=== PATIENT | female | born 1985 | race Asian ===

== ENCOUNTER 2020-09-10 11:08 | Emergency (ER) | payer MEDICAID ==
[~2020-09-10] VITALS: Ht 162.6 cm; Wt 65.5 kg
[~2020-09-10 11:08] MED LIST: INSLAN SQ; MAGN400T7 PO; METF-960 PO; PIOG15TA6 PO
[2020-09-10 11:36] LABS: GLUCOSE,POINT OF CARE 133 MG/DL (70-110)
[2020-09-10] MEDS ORDERED: SODIUM CHLORIDE 0.9% 1,000 ML IV ONE ×2 (11:45→13:15)
[2020-09-10] MEDS ORDERED: ONDANSETRON HCL 4 MG/2 ML VIAL IVP ONE ×2 (11:45→13:00)
[2020-09-10 12:14] LABS: BASOPHILS % (AUTO) 0.4 % (0.0-2.0); EOSINOPHILS % (AUTO) 0.8 % (1.0-6.0); HEMATOCRIT 25.9 % (36-46); HEMOGLOBIN 8.5 g/dL (12.0-16.0); LYMPHOCYTES # (AUTO) 2.2 K/uL (1.0-4.8); LYMPHOCYTES % (AUTO) 14.9 % (22.0-44.0); MEAN CORPUSCULAR HEMOGLOBIN 27.1 pg (26.0-34.0); MEAN CORPUSCULAR HGB CONC 32.6 G/dL (31.0-37.0); MEAN CORPUSCULAR VOLUME 83 fL (80-100); MONOCYTES # (AUTO) 0.7 K/uL (0.1-1.0); MONOCYTES % (AUTO) 4.6 % (2.0-9.0); NEUTROPHILS # (AUTO) 11.6 K/uL (1.8-7.7); NEUTROPHILS % (AUTO) 79.3 % (40.0-70.0); PLATELET COUNT (AUTO) 224 K/uL (150-450); RED BLOOD CELL COUNT(AUTO) 3.12 MIL/uL (4.00-5.20); RED CELL DISTRIBUTION WIDTH 12.1 % (11.5-14.5)
[2020-09-10 12:19] LABS: ANION GAP 10 mmol/L (8-16); CALCIUM, TOTAL 8.9 mg/dL (8.8-10.5); CARBON DIOXIDE 23 mmol/L (22-29); CHLORIDE 102 mmol/L (98-107); CREATININE 0.96 mg/dL (0.60-1.30); GLOMERULAR FILTR. RATE CALC > 60 mL/min (>60); GLUCOSE,RANDOM 141 mg/dL (70-110); POTASSIUM 4.1 mmol/L (3.5-5.1); SODIUM SERUM 135 mmol/L (136-145); UREA NITROGEN, BLOOD 22 mg/dL (7-18)
[2020-09-10 12:47] LABS: ALANINE AMINOTRANSFERASE 13 U/L (12-78); ALBUMIN 2.9 g/dL (3.4-5.0); ALKALINE PHOSPHATASE 51 U/L (46-116); ASPARTATE AMINOTRANSFERASE 12 U/L (15-37); BILIRUBIN,TOTAL 0.3 mg/dL (0.1-1.0); TOTAL PROTEIN, SERUM 6.8 g/dL (6.4-8.2)
[2020-09-10 14:37] VITALS: BP 117/68
== END 2020-09-10 14:37 | disposition home or self-care (01) ==
LOC: EMS 11:08
DX: O99.011 Anemia complicating pregnancy, first trimester (principal); O21.0 Mild hyperemesis gravidarum; O24.12 Pre-existing type 2 diabetes mellitus, in childbirth; O16.1 Unspecified maternal hypertension, first trimester; Z3A.01 Less than 8 weeks gestation of pregnancy
CPT/HCPCS: 36415; 76801; 76817; 80053; 82962; 84702; 85025; 86901; 96361; 96374; 96376; 99284; J2405; J7030

== ENCOUNTER 2020-09-25 12:22 | Observation (INO) | payer MEDICAID ==
[~2020-09-25] VITALS: Ht 162.6 cm; Wt 64.5 kg
[2020-09-25 12:39] LABS: GLUCOSE,POINT OF CARE 126 MG/DL (70-110)
[2020-09-25] MEDS ORDERED: RINGERS SOLUTION,LACTATED 1,000 ML IV ONE (13:43)
[2020-09-25 13:54] LABS: GLUCOMETER DEV NAME(LOC) 4S.; GLUCOSE,POINT OF CARE 225 MG/DL (70-110)
[2020-09-25 14:02] VITALS: BP 100/59
[2020-09-25] MEDS ORDERED: ONDANSETRON HCL 4 MG/2 ML VIAL IVP ONE (15:30)
[2020-09-25 15:55] LABS: ANION GAP 8 mmol/L (8-16); CALCIUM, TOTAL 8.3 mg/dL (8.8-10.5); CARBON DIOXIDE 26 mmol/L (22-29); CHLORIDE 101 mmol/L (98-107); CREATININE 0.96 mg/dL (0.60-1.30); GLOMERULAR FILTR. RATE CALC > 60 mL/min (>60); GLUCOSE,RANDOM 132 mg/dL (70-110); POTASSIUM 4.3 mmol/L (3.5-5.1); SODIUM SERUM 135 mmol/L (136-145); UREA NITROGEN, BLOOD 13 mg/dL (7-18)
[2020-09-25 16:01] LABS: ALANINE AMINOTRANSFERASE 11 U/L (12-78); ALBUMIN 2.6 g/dL (3.4-5.0); ALKALINE PHOSPHATASE 52 U/L (46-116); ASPARTATE AMINOTRANSFERASE 11 U/L (15-37); BILIRUBIN,TOTAL 0.2 mg/dL (0.1-1.0); TOTAL PROTEIN, SERUM 6.1 g/dL (6.4-8.2)
== END 2020-09-25 16:55 | disposition home or self-care (01) ==
LOC: EDUNIT# 12:22 → EMS 12:25 → 4S 12:40 → EDBD 12:40 → INTOOBSV 12:40
PROVIDERS: ADMIT Obstetrics & Gynecology; ATTEND Obstetrics & Gynecology
DX: O21.2 Late vomiting of pregnancy (principal); O26.892 Other specified pregnancy related conditions, second trimester; R42 Dizziness and giddiness; Z3A.21 21 weeks gestation of pregnancy
CPT/HCPCS: 36415; 59025; 76805; 80053; 81001; 82962; 96374; 99219; J2405; J7120; 96360; 96366

== ENCOUNTER 2021-05-30 11:57 | Inpatient (IN) | payer MEDICAID ==
[~2021-05-30] VITALS: Ht 162.6 cm; Wt 56.8 kg
[~2021-05-30 11:57] MED LIST changes: +METF-1211 PO; -METF-960 PO
[2021-05-30] MEDS ORDERED: SODIUM CHLORIDE 0.9% 1,000 ML IV ONE ×2 (13:15→17:45)
[2021-05-30] MEDS ORDERED: ONDANSETRON HCL 4 MG/2 ML VIAL IVP ONE (13:15)
[2021-05-30 13:27] LABS: BASOPHILS % (AUTO) 0.6 % (0.0-2.0); EOSINOPHILS % (AUTO) 0 % (1.0-6.0); HEMATOCRIT 27.9 % (36-46); HEMOGLOBIN 9.4 g/dL (12.0-16.0); LYMPHOCYTES # (AUTO) 1.2 K/uL (1.0-4.8); LYMPHOCYTES % (AUTO) 9.5 % (22.0-44.0); MEAN CORPUSCULAR HEMOGLOBIN 26.6 pg (26.0-34.0); MEAN CORPUSCULAR HGB CONC 33.6 G/dL (31.0-37.0); MEAN CORPUSCULAR VOLUME 79 fL (80-100); MONOCYTES # (AUTO) 0.4 K/uL (0.1-1.0); MONOCYTES % (AUTO) 3.1 % (2.0-9.0); NEUTROPHILS # (AUTO) 11.1 K/uL (1.8-7.7); PLATELET COUNT (AUTO) 318 K/uL (150-450); RED BLOOD CELL COUNT(AUTO) 3.52 MIL/uL (4.00-5.20); RED CELL DISTRIBUTION WIDTH 12.7 % (11.5-14.5)
[2021-05-30 13:30] LABS: NEUTROPHILS % (AUTO) 86.8 % (40.0-70.0)
[2021-05-30 13:38] LABS: ANION GAP 11 mmol/L (8-16); CALCIUM, TOTAL 9.5 mg/dL (8.8-10.5); CARBON DIOXIDE 28 mmol/L (22-29); CHLORIDE 103 mmol/L (98-107); CREATININE 1.43 mg/dL (0.60-1.30); GLOMERULAR FILTR. RATE CALC 41 mL/min (>60); GLUCOSE,RANDOM 240 mg/dL (70-110); POTASSIUM 3.5 mmol/L (3.5-5.1); SODIUM SERUM 142 mmol/L (136-145); UREA NITROGEN, BLOOD 38 mg/dL (7-18)
[2021-05-30 13:49] LABS: ALANINE AMINOTRANSFERASE 12 U/L (12-78); ALBUMIN 3.1 g/dL (3.4-5.0); ALKALINE PHOSPHATASE 65 U/L (46-116); ASPARTATE AMINOTRANSFERASE 13 U/L (15-37); BILIRUBIN,TOTAL 0.7 mg/dL (0.1-1.0); HCG,QUANTITATIVE < 1 mIU/mL (0-6); LIPASE 84 U/L (73-393); TOTAL PROTEIN, SERUM 7.2 g/dL (6.4-8.2)
[2021-05-30] MEDS ORDERED: DiphenhydrAMINE HCL 50 MG/ML VIAL IVP ONE (16:15)
[2021-05-30] MEDS ORDERED: MORPHINE SULFATE 4 MG/ML SYRINGE IVP ONE (16:15)
[2021-05-30] MEDS ORDERED: PB/HYOSCY/ATR/SCOP/LIDO/MAALOX 55 ML BOTTLE PO ONE (16:15)
[2021-05-30 16:41] LABS: APPEARANCE,URINE CLEAR (CLEAR); BILIRUBIN,URINE NEGATIVE (NEGATIVE); GLUCOSE, URINE (UA) 500 mg/dL (NEGATIVE); KETONES,URINE >=80 mg/dL (NEGATIVE); LEUKOCYTE ESTERASE ,URINE NEGATIVE (NEGATIVE); NITRATE,URINE NEGATIVE (NEGATIVE); OCCULT BLOOD,URINE SMALL (NEGATIVE); PROTEIN,URINE SEE CONFIRM (NEGATIVE); UROBILINOGEN,URINE 0.2 mg/dL (<=1.0)
[2021-05-30 16:47] LABS: AMPHET/METH SCREEN,URINE NEGATIVE (NEGATIVE); BARBITURATE SCREEN, URINE NEGATIVE (NEGATIVE); BENZODIAZEPINES SCREEN,URINE NEGATIVE (NEGATIVE); CANNABINOID SCREEN,URINE NEGATIVE (NEGATIVE); COCAINE SCREEN,URINE NEGATIVE (NEGATIVE); METHADONE SCREEN, URINE NEGATIVE (NEGATIVE); OPIATE SCREEN,URINE NEGATIVE (NEGATIVE); PHENCYCLIDINE SCREEN,URINE NEGATIVE (NEGATIVE)
[2021-05-30 16:52] LABS: SULFOSALICYLIC ACID,URINE 4+ (Negative)
[2021-05-30 16:53] LABS: BACTERIA,URINE Few /HPF (None Seen); SQUAMOUS EPITHELIAL CELL,UR Few /LPF (None Seen); WBC,URINE 0-2 /HPF (0-5)
[2021-05-30] MEDS ORDERED: MetroNIDAZOLE 250 MG TABLET PO ONE (20:45)
[2021-05-30] MEDS: RINGERS SOLUTION,LACTATED 1,000 ML IV SCH (21:00)
[2021-05-30] MEDS ORDERED: DEXTROSE 50%-WATER 25 GM/50 ML SYRINGE IVP PRN (21:00)
[2021-05-30] MEDS ORDERED: RINGERS LACTATED IV ONE (21:00)
[2021-05-30] MEDS ORDERED: MetroNIDAZOLE 500 MG TABLET PO ONE (21:00)
[2021-05-30 21:21] LABS: RETICULOCYTE % (AUTO) 1.5 % (0.5-2.3)
[2021-05-30 21:22] LABS: % IRON SATURATION 27.9 % (22-44)
[2021-05-30] MEDS: INSULIN GLARGINE,HUM.REC.ANLOG 100 UNITS/ML SQ SCH (22:02)
[2021-05-30] MEDS: INSULIN LISPRO 100 UNITS/ML SQ PRN (22:10)
[2021-05-31] MEDS: HEPARIN SODIUM,PORCINE 5,000 UNITS/ML VIAL SQ SCH ×3 (00:01→15:37)
[2021-05-31 00:28] LABS: COVID AG,FIA SOURCE NASAL SWAB
[2021-05-31] MEDS: RINGERS SOLUTION,LACTATED 1,000 ML IV SCH ×4 (03:17→23:16)
[2021-05-31 07:47] LABS: BASOPHILS % (AUTO) 0.6 % (0.0-2.0); EOSINOPHILS % (AUTO) 0.2 % (1.0-6.0); HEMATOCRIT 23.6 % (36-46); HEMOGLOBIN 8.1 g/dL (12.0-16.0); LYMPHOCYTES # (AUTO) 2.4 K/uL (1.0-4.8); LYMPHOCYTES % (AUTO) 20.6 % (22.0-44.0); MEAN CORPUSCULAR HEMOGLOBIN 27.3 pg (26.0-34.0); MEAN CORPUSCULAR HGB CONC 34.4 G/dL (31.0-37.0); MEAN CORPUSCULAR VOLUME 79 fL (80-100); MONOCYTES # (AUTO) 0.9 K/uL (0.1-1.0); MONOCYTES % (AUTO) 7.4 % (2.0-9.0); NEUTROPHILS # (AUTO) 8.3 K/uL (1.8-7.7); NEUTROPHILS % (AUTO) 71.2 % (40.0-70.0); PLATELET COUNT (AUTO) 242 K/uL (150-450); RED BLOOD CELL COUNT(AUTO) 2.98 MIL/uL (4.00-5.20); RED CELL DISTRIBUTION WIDTH 12.8 % (11.5-14.5)
[2021-05-31 07:55] LABS: CALCIUM, TOTAL 8.2 mg/dL (8.8-10.5); CREATININE 1.24 mg/dL (0.60-1.30); MAGNESIUM 1.4 mg/dL (1.80-2.40); POTASSIUM 3.5 mmol/L (3.5-5.1)
[2021-05-31] MEDS: ONDANSETRON HCL 4 MG/2 ML VIAL IVP PRN ×3 (10:42→22:43)
[2021-05-31] MEDS ORDERED: MORPHINE SULFATE 2 MG/ML SYRINGE IVP PRN (12:30)
[2021-05-31 15:40] VITALS: BP 149/100
[2021-05-31 17:46] LABS: GLUCOMETER DEV NAME(LOC) 6N.1; GLUCOSE,POINT OF CARE 108 MG/DL (70-110)
[2021-05-31] MEDS: ACETAMINOPHEN 325 MG TABLET PO PRN ×2 (18:08→22:43)
[2021-05-31] MEDS: INSULIN GLARGINE,HUM.REC.ANLOG 100 UNITS/ML SQ SCH (20:06)
[2021-05-31] MEDS ORDERED: MAGNESIUM HYDROXIDE SUSPENSION 30 ML UDCUP PO ONE (20:15)
[2021-05-31 20:54] VITALS: BP 137/81
[2021-05-31 21:31] LABS: GLUCOMETER DEV NAME(LOC) 6N.1; GLUCOSE,POINT OF CARE 102 MG/DL (70-110)
[2021-06-01] MEDS: HEPARIN SODIUM,PORCINE 5,000 UNITS/ML VIAL SQ SCH ×4 (00:46→23:18)
[2021-06-01 00:47] VITALS: BP 150/91
[2021-06-01] MEDS ORDERED: MAGNESIUM SULFATE 4 GM/WATER 100 ML IV PRN (01:15)
[2021-06-01] MEDS ORDERED: MAGNESIUM OXIDE 400 MG TABLET PO PRN (01:15)
[2021-06-01] MEDS ORDERED: MAGNESIUM SULFATE 2 GM/WATER 50 ML IV PRN (01:15)
[2021-06-01] MEDS: MORPHINE SULFATE 2 MG/ML SYRINGE IVP PRN ×6 (01:22→21:37)
[2021-06-01] MEDS: ACETAMINOPHEN 325 MG TABLET PO PRN ×2 (04:12→10:45)
[2021-06-01 04:30] VITALS: BP 167/90
[2021-06-01] MEDS: ONDANSETRON HCL 4 MG/2 ML VIAL IVP PRN ×3 (04:33→21:37)
[2021-06-01 06:46] LABS: GLUCOMETER DEV NAME(LOC) 6N.1; GLUCOSE,POINT OF CARE 70 MG/DL (70-110)
[2021-06-01 07:30] VITALS: BP 148/79
[2021-06-01] MEDS: RINGERS SOLUTION,LACTATED 1,000 ML IV SCH (10:57)
[2021-06-01 11:11] LABS: GLUCOMETER DEV NAME(LOC) 6N.2; GLUCOSE,POINT OF CARE 160 MG/DL (70-110)
[2021-06-01] MEDS: DEXTROSE 5%-0.45% SODIUM CHL 1,000 ML IV SCH (11:24)
[2021-06-01] MEDS: INSULIN LISPRO 100 UNITS/ML SQ PRN ×2 (11:30→18:13)
[2021-06-01 11:54] LABS: BASOPHILS % (AUTO) 0.8 % (0.0-2.0); EOSINOPHILS % (AUTO) 0.3 % (1.0-6.0); HEMATOCRIT 26.8 % (36-46); HEMOGLOBIN 8.9 g/dL (12.0-16.0); LYMPHOCYTES # (AUTO) 1.4 K/uL (1.0-4.8); LYMPHOCYTES % (AUTO) 17.9 % (22.0-44.0); MEAN CORPUSCULAR HEMOGLOBIN 26.7 pg (26.0-34.0); MEAN CORPUSCULAR HGB CONC 33.3 G/dL (31.0-37.0); MEAN CORPUSCULAR VOLUME 80 fL (80-100); MONOCYTES # (AUTO) 0.6 K/uL (0.1-1.0); MONOCYTES % (AUTO) 7.1 % (2.0-9.0); NEUTROPHILS # (AUTO) 5.8 K/uL (1.8-7.7); NEUTROPHILS % (AUTO) 73.9 % (40.0-70.0); PLATELET COUNT (AUTO) 225 K/uL (150-450); RED BLOOD CELL COUNT(AUTO) 3.34 MIL/uL (4.00-5.20); RED CELL DISTRIBUTION WIDTH 12.6 % (11.5-14.5)
[2021-06-01 11:57] LABS: ANION GAP 8 mmol/L (8-16); CALCIUM, TOTAL 8.4 mg/dL (8.8-10.5); CARBON DIOXIDE 28 mmol/L (22-29); CHLORIDE 102 mmol/L (98-107); CREATININE 0.97 mg/dL (0.60-1.30); GLOMERULAR FILTR. RATE CALC > 60 mL/min (>60); GLUCOSE,RANDOM 107 mg/dL (70-110); POTASSIUM 3.5 mmol/L (3.5-5.1); SODIUM SERUM 138 mmol/L (136-145); UREA NITROGEN, BLOOD 20 mg/dL (7-18)
[2021-06-01 12:03] LABS: ALANINE AMINOTRANSFERASE 9 U/L (12-78); ALBUMIN 2.2 g/dL (3.4-5.0); ALKALINE PHOSPHATASE 51 U/L (46-116); ASPARTATE AMINOTRANSFERASE 15 U/L (15-37); BILIRUBIN,TOTAL 0.4 mg/dL (0.1-1.0); TOTAL PROTEIN, SERUM 5.8 g/dL (6.4-8.2)
[2021-06-01 16:53] VITALS: BP 148/98
[2021-06-01 17:27] LABS: GLUCOMETER DEV NAME(LOC) 6N.2; GLUCOSE,POINT OF CARE 102 MG/DL (70-110)
[2021-06-01 19:56] LABS: GLUCOMETER DEV NAME(LOC) 6N.2; GLUCOSE,POINT OF CARE 145 MG/DL (70-110)
[2021-06-01 20:20] VITALS: BP 135/88
[2021-06-01] MEDS: INSULIN GLARGINE,HUM.REC.ANLOG 100 UNITS/ML SQ SCH (21:47)
[2021-06-02] VITALS: BP 166/92
[2021-06-02] MEDS: DEXTROSE 5%-0.45% SODIUM CHL 1,000 ML IV SCH ×2 (00:15→15:00)
[2021-06-02] MEDS: MORPHINE SULFATE 2 MG/ML SYRINGE IVP PRN ×2 (03:35→10:48)
[2021-06-02 04:32] VITALS: BP 155/66
[2021-06-02 05:12] LABS: GLUCOMETER DEV NAME(LOC) 6N.1; GLUCOSE,POINT OF CARE 133 MG/DL (70-110)
[2021-06-02 05:51] LABS: GLUCOMETER DEV NAME(LOC) 6N.2; GLUCOSE,POINT OF CARE 148 MG/DL (70-110)
[2021-06-02] MEDS: INSULIN LISPRO 100 UNITS/ML SQ PRN ×2 (06:08→20:39)
[2021-06-02 06:28] LABS: BASOPHILS % (AUTO) 1.2 % (0.0-2.0); EOSINOPHILS % (AUTO) 0.9 % (1.0-6.0); HEMATOCRIT 25.4 % (36-46); HEMOGLOBIN 8.6 g/dL (12.0-16.0); LYMPHOCYTES # (AUTO) 1.3 K/uL (1.0-4.8); LYMPHOCYTES % (AUTO) 17.5 % (22.0-44.0); MEAN CORPUSCULAR HEMOGLOBIN 26.9 pg (26.0-34.0); MEAN CORPUSCULAR HGB CONC 33.7 G/dL (31.0-37.0); MEAN CORPUSCULAR VOLUME 80 fL (80-100); MONOCYTES # (AUTO) 0.7 K/uL (0.1-1.0); NEUTROPHILS # (AUTO) 5.3 K/uL (1.8-7.7); NEUTROPHILS % (AUTO) 71.4 % (40.0-70.0); PLATELET COUNT (AUTO) 217 K/uL (150-450); RED BLOOD CELL COUNT(AUTO) 3.18 MIL/uL (4.00-5.20); RED CELL DISTRIBUTION WIDTH 12.6 % (11.5-14.5)
[2021-06-02 06:56] LABS: ALANINE AMINOTRANSFERASE 9 U/L (12-78); ALKALINE PHOSPHATASE 48 U/L (46-116); ANION GAP 3 mmol/L (8-16); ASPARTATE AMINOTRANSFERASE 13 U/L (15-37); BILIRUBIN,TOTAL 0.4 mg/dL (0.1-1.0); CALCIUM, TOTAL 8.1 mg/dL (8.8-10.5); CARBON DIOXIDE 29 mmol/L (22-29); CHLORIDE 102 mmol/L (98-107); CREATININE 0.93 mg/dL (0.60-1.30); GLOMERULAR FILTR. RATE CALC > 60 mL/min (>60); GLUCOSE,RANDOM 147 mg/dL (70-110); POTASSIUM 3.3 mmol/L (3.5-5.1); SODIUM SERUM 134 mmol/L (136-145); TOTAL PROTEIN, SERUM 5.4 g/dL (6.4-8.2); UREA NITROGEN, BLOOD 17 mg/dL (7-18)
[2021-06-02 08:13] VITALS: BP 160/87
[2021-06-02] MEDS: ONDANSETRON HCL 4 MG/2 ML VIAL IVP PRN ×2 (08:28→20:35)
[2021-06-02] MEDS: HEPARIN SODIUM,PORCINE 5,000 UNITS/ML VIAL SQ SCH ×3 (08:29→23:22)
[2021-06-02] MEDS ORDERED: POTASSIUM CHL 10 MEQ/WATER 50 ML IV PRN (11:45)
[2021-06-02] MEDS ORDERED: MAGNESIUM OXIDE 400 MG TABLET PO PRN (11:45)
[2021-06-02] MEDS ORDERED: MAGNESIUM SULFATE 4 GM/WATER 100 ML IV PRN (11:45)
[2021-06-02] MEDS ORDERED: MAGNESIUM SULFATE 2 GM/WATER 50 ML IV PRN (11:45)
[2021-06-02] MEDS ORDERED: MORPHINE SULFATE 2 MG/ML SYRINGE IVP ONE ×2 (12:00→12:15)
[2021-06-02 12:21] LABS: CREATINE KINASE, TOTAL ONLY 57 U/L (26-192)
[2021-06-02 12:29] LABS: HEMOGLOBIN A1C 7.1 % (3.8-5.6)
[2021-06-02] MEDS ORDERED: LORazepam 2 MG/ML VIAL IVP PRN (13:00)
[2021-06-02 13:36] LABS: GLUCOMETER DEV NAME(LOC) 6N.1; GLUCOSE,POINT OF CARE 141 MG/DL (70-110)
[2021-06-02 14:30] VITALS: BP 147/78
[2021-06-02] MEDS: METOCLOPRAMIDE HCL 5 MG/ML 2 ML VIAL IVP PRN (14:35)
[2021-06-02] MEDS: POTASSIUM CHLORIDE 20 MEQ ER TABLET PO PRN (17:58)
[2021-06-02] MEDS: INSULIN GLARGINE,HUM.REC.ANLOG 100 UNITS/ML SQ SCH (20:38)
[2021-06-02 21:14] VITALS: BP 162/64
[2021-06-02 21:31] LABS: GLUCOMETER DEV NAME(LOC) 6N.1; GLUCOSE,POINT OF CARE 152 MG/DL (70-110)
[2021-06-03] VITALS (7 sets, daily range): BP systolic 133–161; BP diastolic 70–96
[2021-06-03] MEDS: MORPHINE SULFATE 4 MG/ML SYRINGE IVP PRN (02:49)
[2021-06-03] MEDS: DEXTROSE 5%-0.45% SODIUM CHL 1,000 ML IV SCH ×2 (05:34→16:53)
[2021-06-03] MEDS: METOCLOPRAMIDE HCL 5 MG/ML 2 ML VIAL IVP PRN (06:03)
[2021-06-03 07:16] LABS: GLUCOMETER DEV NAME(LOC) 6N.1; GLUCOSE,POINT OF CARE 133 MG/DL (70-110)
[2021-06-03] MEDS: HEPARIN SODIUM,PORCINE 5,000 UNITS/ML VIAL SQ SCH ×2 (08:00→16:53)
[2021-06-03] MEDS ORDERED: SODIUM CHLORIDE 0.9% 1,000 ML ONE (12:41)
[2021-06-03] MEDS ORDERED: SODIUM CHLORIDE 0.9% 1,000 ML IV ONE (13:00)
[2021-06-03 15:52] LABS: GLUCOMETER DEV NAME(LOC) ERT.5; GLUCOSE,POINT OF CARE 159 MG/DL (70-110)
[2021-06-03] MEDS: POTASSIUM CHLORIDE 20 MEQ ER TABLET PO PRN (16:53)
[2021-06-03 17:42] LABS: GLUCOMETER DEV NAME(LOC) 6N.2; GLUCOSE,POINT OF CARE 230 MG/DL (70-110)
[2021-06-03] MEDS: INSULIN LISPRO 100 UNITS/ML SQ PRN (18:50)
[2021-06-03] MEDS: INSULIN GLARGINE,HUM.REC.ANLOG 100 UNITS/ML SQ SCH (20:51)
[2021-06-03 23:47] LABS: GLUCOMETER DEV NAME(LOC) 6N.1; GLUCOSE,POINT OF CARE 115 MG/DL (70-110)
[2021-06-04] MEDS: HEPARIN SODIUM,PORCINE 5,000 UNITS/ML VIAL SQ SCH ×3 (00:06→16:07)
[2021-06-04] MEDS: DEXTROSE 5%-0.45% SODIUM CHL 1,000 ML IV SCH ×2 (01:41→16:08)
[2021-06-04] MEDS: MORPHINE SULFATE 4 MG/ML SYRINGE IVP PRN ×3 (04:19→16:01)
[2021-06-04 04:23] VITALS: BP 159/80
[2021-06-04] MEDS ORDERED: LIDOCAINE/PF 2% 5 ML VIAL IM ONE (06:50)
[2021-06-04] MEDS ORDERED: PROPOFOL 1% 20 ML VIAL IVP ONE (06:50)
[2021-06-04 07:31] LABS: GLUCOMETER DEV NAME(LOC) 6N.2; GLUCOSE,POINT OF CARE 111 MG/DL (70-110)
[2021-06-04 08:25] VITALS: BP 140/95
[2021-06-04] MEDS: METOCLOPRAMIDE HCL 5 MG/ML 2 ML VIAL IVP PRN ×2 (10:52→22:26)
[2021-06-04] MEDS: INSULIN LISPRO 100 UNITS/ML SQ PRN ×2 (11:24→17:04)
[2021-06-04 13:36] LABS: GLUCOMETER DEV NAME(LOC) 6N.1; GLUCOSE,POINT OF CARE 141 MG/DL (70-110)
[2021-06-04 16:01] VITALS: BP 169/79
[2021-06-04 16:23] VITALS: BP 148/76
[2021-06-04 17:42] LABS: GLUCOMETER DEV NAME(LOC) 6N.2; GLUCOSE,POINT OF CARE 161 MG/DL (70-110)
[2021-06-04 19:30] VITALS: BP 157/91
[2021-06-04 20:46] LABS: GLUCOMETER DEV NAME(LOC) 6N.1; GLUCOSE,POINT OF CARE 110 MG/DL (70-110)
[2021-06-05] MEDS: HEPARIN SODIUM,PORCINE 5,000 UNITS/ML VIAL SQ SCH ×3 (00:50→16:00)
[2021-06-05 04:30] VITALS: BP 138/72
[2021-06-05] MEDS: INSULIN LISPRO 100 UNITS/ML SQ PRN ×2 (05:50→12:14)
[2021-06-05 06:06] LABS: GLUCOMETER DEV NAME(LOC) 6N.2; GLUCOSE,POINT OF CARE 159 MG/DL (70-110)
[2021-06-05] MEDS: DEXTROSE 5%-0.45% SODIUM CHL 1,000 ML IV SCH (08:35)
[2021-06-05 08:47] VITALS: BP 125/70
[2021-06-05 12:03] VITALS: BP 130/80
[2021-06-05 12:21] LABS: GLUCOMETER DEV NAME(LOC) 6N.1; GLUCOSE,POINT OF CARE 125 MG/DL (70-110)
[2021-06-05 12:43] VITALS: BP 80/80
[2021-06-05] MEDS ORDERED: METO5TAB95 PO (15:25)
[2021-06-05] MEDS ORDERED: ONDA-104 PO (15:25)
[2021-06-05 17:03] VITALS: BP 128/64
== END 2021-06-05 16:35 | disposition home or self-care (01) | DRG 241 ==
LOC: EMS 12:01 → 6N 05-31 15:00
PROVIDERS: ADMIT Internal Medicine; ATTEND Internal Medicine
PROC: 0DB68ZX Excision of Stomach, Via Natural or Artificial Opening Endoscopic, Diagnostic (ICD-10-PCS; 2021-06-03)
PROC: 0DB58ZX Excision of Esophagus, Via Natural or Artificial Opening Endoscopic, Diagnostic (ICD-10-PCS; principal; 2021-06-03 14:30)
DX: K29.70 Gastritis, unspecified, without bleeding (principal); R65.11 Systemic inflammatory response syndrome (SIRS) of non-infectious origin with acute organ dysfunction; E11.43 Type 2 diabetes mellitus with diabetic autonomic (poly)neuropathy; E87.1 Hypo-osmolality and hyponatremia; K31.84 Gastroparesis; D64.9 Anemia, unspecified; E11.65 Type 2 diabetes mellitus with hyperglycemia; E86.0 Dehydration; K20.90 Esophagitis, unspecified without bleeding; I10 Essential (primary) hypertension; E87.6 Hypokalemia; E78.5 Hyperlipidemia, unspecified; Z20.822 Contact with and (suspected) exposure to COVID-19; K52.9 Noninfective gastroenteritis and colitis, unspecified; K59.00 Constipation, unspecified; F41.9 Anxiety disorder, unspecified; Z91.013 Allergy to seafood; Z83.3 Family history of diabetes mellitus; Z82.49 Family history of ischemic heart disease and other diseases of the circulatory system
CPT/HCPCS: 74018; 74176; 80048; 80053; 81001; 81002; 82040; 82271; 82550; 82962; 83036; 83540; 83550; 83605; 83690; 83735; 84132; 84302; 84702; 84703; 85025; 85045; 87040; 87045; 88305; 88312; 88313; 89055; 99285; J1200; J1644; J1815; J2060; J2270; J2405; J2704; J2765; J3475; J3490; J7030; J7120; 36415-L1; 36415-TC

== ENCOUNTER 2022-04-01 08:46 | Inpatient (IN) | payer MEDICAID ==
[~2022-04-01] VITALS: Ht 162.6 cm; Wt 76.3 kg
[~2022-04-01 08:46] MED LIST changes: +METO5TAB95 PO; +ONDA-104 PO
[2022-04-01] MEDS ORDERED: SODIUM CHLORIDE 0.9% 2,000 ML IV ONE (09:45)
[2022-04-01] MEDS ORDERED: PANTOPRAZOLE SODIUM 40 MG/VIAL IVP ONE (09:45)
[2022-04-01] MEDS ORDERED: ONDANSETRON HCL 4 MG/2 ML VIAL IVP ONE (09:45)
[2022-04-01] MEDS ORDERED: MORPHINE SULFATE 4 MG/ML SYRINGE IVP ONE (09:45)
[2022-04-01 09:50] LABS: COVID AG,FIA SOURCE NASOPHARYNGEAL
[2022-04-01] MEDS: PANTOPRAZOLE SODIUM 80 MG in SODIUM CHLORIDE 0.9% 100 ML IV SCH ×2 (10:07→20:18)
[2022-04-01 10:13] LABS: INFLUENZA TYPE B NEGATIVE FOR TYPE B (NEGATIVE)
[2022-04-01 10:17] LABS: INFLUENZA TYPE A POSITIVE FOR TYPE A (NEGATIVE)
[2022-04-01 10:43] LABS: BASOPHILS % (AUTO) 0.7 % (0.0-2.0); EOSINOPHILS % (AUTO) 0.7 % (1.0-6.0); HEMATOCRIT 28.6 % (36-46); HEMOGLOBIN 9.2 g/dL (12.0-16.0); LYMPHOCYTES # (AUTO) 1.1 K/uL (1.0-4.8); LYMPHOCYTES % (AUTO) 14.8 % (22.0-44.0); MEAN CORPUSCULAR HEMOGLOBIN 26.6 pg (26.0-34.0); MEAN CORPUSCULAR HGB CONC 32.1 G/dL (31.0-37.0); MEAN CORPUSCULAR VOLUME 83 fL (80-100); MONOCYTES # (AUTO) 0.5 K/uL (0.1-1.0); MONOCYTES % (AUTO) 6.1 % (2.0-9.0); NEUTROPHILS # (AUTO) 5.8 K/uL (1.8-7.7); NEUTROPHILS % (AUTO) 77.7 % (40.0-70.0); PLATELET COUNT (AUTO) 239 K/uL (150-450); RED BLOOD CELL COUNT(AUTO) 3.44 MIL/uL (4.00-5.20); RED CELL DISTRIBUTION WIDTH 13.2 % (11.5-14.5)
[2022-04-01 10:44] LABS: CALCIUM, TOTAL 7.9 mg/dL (8.8-10.5); CREATININE 3.13 mg/dL (0.60-1.30); POTASSIUM 3.6 mmol/L (3.5-5.1)
[2022-04-01 10:50] LABS: ALBUMIN 1.2 g/dL (3.4-5.0); BILIRUBIN,TOTAL 0.2 mg/dL (0.1-1.0)
[2022-04-01 11:01] LABS: LACTIC ACID 0.3 mmol/L (0.4-2.0)
[2022-04-01] MEDS ORDERED: METOCLOPRAMIDE HCL 5 MG/ML 2 ML VIAL IVP ONE (12:15)
[2022-04-01] MEDS ORDERED: HYDROmorphone HCL 2 MG/ML SYRINGE IVP ONE (12:15)
[2022-04-01 12:25] LABS: OCCULT BLOOD,GASTRIC FLUID POSITIVE (NEGATIVE)
[2022-04-01] MEDS ORDERED: 0.9% SODIUM CHLORIDE 10 ML SYRINGE IVP PRN (12:45)
[2022-04-01] MEDS ORDERED: SODIUM CHLORIDE 0.9% 1,000 ML IV ONE (13:00)
[2022-04-01 13:06] LABS: APPEARANCE,URINE CLEAR (CLEAR); BILIRUBIN,URINE NEGATIVE (NEGATIVE); GLUCOSE, URINE (UA) 300-500 mg/dL (NEGATIVE); LEUKOCYTE ESTERASE ,URINE NEGATIVE (NEGATIVE); NITRATE,URINE NEGATIVE (NEGATIVE); OCCULT BLOOD,URINE MODERATE (NEGATIVE); PH,URINE 6.5 (5.0-8.0); PROTEIN,URINE 300-600,SEE CONFIRM mg/dL (NEGATIVE); SPECIFIC GRAVITIY, URINE 1.021 (1.003-1.030); UROBILINOGEN,URINE <=1.0 mg/dL (<=1.0)
[2022-04-01] MEDS ORDERED: DEXTROSE 50%-WATER 25 GM/50 ML SYRINGE IVP PRN (13:15)
[2022-04-01 14:12] LABS: BACTERIA,URINE None Seen /HPF (None Seen); RBC,URINE 0-2 /HPF (0-2); SQUAMOUS EPITHELIAL CELL,UR Few /LPF (None Seen); SULFOSALICYLIC ACID,URINE 3+ (Negative); WBC,URINE 0-2 /HPF (0-5)
[2022-04-01] MEDS ORDERED: AmLODIPine BESYLATE 10 MG TABLET PO ONE (16:00)
[2022-04-01] MEDS: HYDROmorphone HCL 2 MG/ML SYRINGE IVP PRN ×2 (17:48→22:59)
[2022-04-01] MEDS: CloNIDine HCL 0.1 MG TABLET PO PRN (17:57)
[2022-04-01 21:23] LABS: BASOPHILS % (AUTO) 0.5 % (0.0-2.0); EOSINOPHILS % (AUTO) 0.1 % (1.0-6.0); HEMATOCRIT 24.4 % (36-46); HEMOGLOBIN 7.7 g/dL (12.0-16.0); LYMPHOCYTES # (AUTO) 0.8 K/uL (1.0-4.8); LYMPHOCYTES % (AUTO) 8.1 % (22.0-44.0); MEAN CORPUSCULAR HEMOGLOBIN 26.3 pg (26.0-34.0); MEAN CORPUSCULAR HGB CONC 31.4 G/dL (31.0-37.0); MEAN CORPUSCULAR VOLUME 84 fL (80-100); MONOCYTES # (AUTO) 0.9 K/uL (0.1-1.0); MONOCYTES % (AUTO) 8.3 % (2.0-9.0); NEUTROPHILS # (AUTO) 8.7 K/uL (1.8-7.7); PLATELET COUNT (AUTO) 228 K/uL (150-450); RED BLOOD CELL COUNT(AUTO) 2.92 MIL/uL (4.00-5.20); RED CELL DISTRIBUTION WIDTH 13.6 % (11.5-14.5)
[2022-04-01] MEDS: ONDANSETRON HCL 4 MG/2 ML VIAL IVP PRN (22:59)
[2022-04-01 23:02] VITALS: BP 155/85
[2022-04-02] VITALS (12 sets, daily range): BP systolic 117–169; BP diastolic 65–89
[2022-04-02] MEDS: HYDROmorphone HCL 2 MG/ML SYRINGE IVP PRN ×2 (03:41→08:48)
[2022-04-02] MEDS: ONDANSETRON HCL 4 MG/2 ML VIAL IVP PRN (05:26)
[2022-04-02 05:57] LABS: BASOPHILS % (AUTO) 0.6 % (0.0-2.0); EOSINOPHILS % (AUTO) 0 % (1.0-6.0); LYMPHOCYTES # (AUTO) 1.3 K/uL (1.0-4.8); LYMPHOCYTES % (AUTO) 13.4 % (22.0-44.0); MEAN CORPUSCULAR HEMOGLOBIN 26.7 pg (26.0-34.0); MEAN CORPUSCULAR HGB CONC 32.2 G/dL (31.0-37.0); MEAN CORPUSCULAR VOLUME 83 fL (80-100); MONOCYTES # (AUTO) 0.8 K/uL (0.1-1.0); MONOCYTES % (AUTO) 8.3 % (2.0-9.0); NEUTROPHILS # (AUTO) 7.2 K/uL (1.8-7.7); NEUTROPHILS % (AUTO) 77.7 % (40.0-70.0); PLATELET COUNT (AUTO) 237 K/uL (150-450); RED BLOOD CELL COUNT(AUTO) 2.46 MIL/uL (4.00-5.20); RED CELL DISTRIBUTION WIDTH 13.4 % (11.5-14.5)
[2022-04-02 06:05] LABS: CALCIUM, TOTAL 7.2 mg/dL (8.8-10.5); CREATININE 3.13 mg/dL (0.60-1.30); POTASSIUM 3.9 mmol/L (3.5-5.1)
[2022-04-02 06:10] LABS: MAGNESIUM 1.4 mg/dL (1.80-2.40); PHOSPHORUS 6.2 mg/dL (2.5-4.9)
[2022-04-02 06:24] LABS: HEMATOCRIT 20.4 % (36-46); HEMOGLOBIN 6.6 g/dL (12.0-16.0)
[2022-04-02 06:47] LABS: GLUCOMETER DEV NAME(LOC) 5S.1B; GLUCOSE,POINT OF CARE 120 MG/DL (70-110)
[2022-04-02] MEDS ORDERED: MAGNESIUM SULFATE 1 GM in DEXTROSE 5%-WATER 50 ML IV ONE (07:00)
[2022-04-02] MEDS ORDERED: SODIUM CHLORIDE 0.9% 500 ML IV ONE (08:25)
[2022-04-02] MEDS ORDERED: SODIUM CHLORIDE 0.9% 1,000 ML ONE (08:49)
[2022-04-02] MEDS ORDERED: PANTOPRAZOLE SODIUM 40 MG/VIAL IVP SCH (09:00)
[2022-04-02] MEDS: PANTOPRAZOLE SODIUM 80 MG in SODIUM CHLORIDE 0.9% 100 ML IV SCH ×2 (09:10→21:38)
[2022-04-02] MEDS ORDERED: PROPOFOL 1% 20 ML VIAL IVP ONE (12:00)
[2022-04-02] MEDS ORDERED: LIDOCAINE/PF 2% 5 ML VIAL IM ONE (12:00)
[2022-04-02 12:36] LABS: GLUCOMETER DEV NAME(LOC) 5S.1B; GLUCOSE,POINT OF CARE 128 MG/DL (70-110)
[2022-04-02] MEDS ORDERED: SODIUM CHLORIDE 0.9% 250 ML IV ONE (12:45)
[2022-04-02] MEDS: ACETAMINOPHEN 325 MG TABLET PO PRN ×2 (15:05→21:38)
[2022-04-02] MEDS: AmLODIPine BESYLATE 10 MG TABLET PO SCH (17:55)
[2022-04-02 18:08] LABS: HEMATOCRIT 27.3 % (36-46); HEMOGLOBIN 8.6 g/dL (12.0-16.0)
[2022-04-02 18:16] LABS: GLUCOMETER DEV NAME(LOC) 5S.1B; GLUCOSE,POINT OF CARE 116 MG/DL (70-110)
[2022-04-02 21:23] LABS: HEMATOCRIT 24.5 % (36-46); HEMOGLOBIN 7.8 g/dL (12.0-16.0)
[2022-04-02 22:56] LABS: APPEARANCE,URINE CLEAR (CLEAR); BILIRUBIN,URINE NEGATIVE (NEGATIVE); GLUCOSE, URINE (UA) 300-500 mg/dL (NEGATIVE); LEUKOCYTE ESTERASE ,URINE NEGATIVE (NEGATIVE); NITRATE,URINE NEGATIVE (NEGATIVE); OCCULT BLOOD,URINE LARGE (NEGATIVE); PH,URINE 6.5 (5.0-8.0); PROTEIN,URINE >600,SEE CONFIRM mg/dL (NEGATIVE); SPECIFIC GRAVITIY, URINE 1.022 (1.003-1.030); UROBILINOGEN,URINE <=1.0 mg/dL (<=1.0)
[2022-04-02 23:00] LABS: SULFOSALICYLIC ACID,URINE 3+ (Negative); WBC,URINE 0-2 /HPF (0-5)
[2022-04-02 23:01] LABS: BACTERIA,URINE Few /HPF (None Seen); SQUAMOUS EPITHELIAL CELL,UR Few /LPF (None Seen)
[2022-04-03 00:47] VITALS: BP 131/63
[2022-04-03] MEDS: ONDANSETRON HCL 4 MG/2 ML VIAL IVP PRN (01:23)
[2022-04-03] MEDS: ACETAMINOPHEN 325 MG TABLET PO PRN ×4 (01:25→20:06)
[2022-04-03 05:56] VITALS: BP 133/65
[2022-04-03] MEDS: PANTOPRAZOLE SODIUM 80 MG in SODIUM CHLORIDE 0.9% 100 ML IV SCH (06:07)
[2022-04-03 06:14] LABS: HEMATOCRIT 25.9 % (36-46); HEMOGLOBIN 8.6 g/dL (12.0-16.0)
[2022-04-03 06:24] LABS: CALCIUM, TOTAL 7.3 mg/dL (8.8-10.5); CREATININE 3.37 mg/dL (0.60-1.30); MAGNESIUM 1.6 mg/dL (1.80-2.40); PHOSPHORUS 4.5 mg/dL (2.5-4.9); POTASSIUM 3.6 mmol/L (3.5-5.1)
[2022-04-03] MEDS: METOCLOPRAMIDE HCL 5 MG/ML 2 ML VIAL IVP PRN (07:07)
[2022-04-03 07:23] VITALS: BP 146/80
[2022-04-03 11:27] VITALS: BP 138/80
[2022-04-03] MEDS: GuaiFENesin/D-METHORPHAN [SUGAR-FREE] 200-20MG/10 ML SYRUP UDCUP PO PRN (11:52)
[2022-04-03] MEDS: INSULIN LISPRO 100 UNITS/ML SQ PRN (11:52)
[2022-04-03 12:27] LABS: HEMATOCRIT 28.1 % (36-46)
[2022-04-03] MEDS ORDERED: MAGNESIUM OXIDE 400 MG TABLET PO ONE (13:45)
[2022-04-03 15:18] VITALS: BP 130/74
[2022-04-03] MEDS: AmLODIPine BESYLATE 10 MG TABLET PO SCH (17:10)
[2022-04-03 17:46] LABS: GLUCOMETER DEV NAME(LOC) 5N.1C; GLUCOSE,POINT OF CARE 137 MG/DL (70-110)
[2022-04-03 17:46] LABS: GLUCOMETER DEV NAME(LOC) 5N.1C; GLUCOSE,POINT OF CARE 105 MG/DL (70-110)
[2022-04-03 19:41] LABS: GLUCOMETER DEV NAME(LOC) 5S.1B; GLUCOSE,POINT OF CARE 117 MG/DL (70-110)
[2022-04-03] MEDS: PANTOPRAZOLE SODIUM 40 MG DR TABLET PO SCH (20:03)
[2022-04-03 20:41] LABS: GLUCOMETER DEV NAME(LOC) 5S.2B; GLUCOSE,POINT OF CARE 142 MG/DL (70-110)
[2022-04-03 20:50] VITALS: BP 151/76
[2022-04-04 01:44] VITALS: BP 139/95
[2022-04-04] MEDS: ACETAMINOPHEN 325 MG TABLET PO PRN ×3 (02:29→23:39)
[2022-04-04 04:00] VITALS: BP 144/76
[2022-04-04] MEDS: ONDANSETRON HCL 4 MG/2 ML VIAL IVP PRN ×2 (04:10→23:05)
[2022-04-04 06:28] LABS: CALCIUM, TOTAL 7.7 mg/dL (8.8-10.5); CREATININE 3.1 mg/dL (0.60-1.30); MAGNESIUM 1.8 mg/dL (1.80-2.40); PHOSPHORUS 3.8 mg/dL (2.5-4.9); POTASSIUM 3.2 mmol/L (3.5-5.1)
[2022-04-04 08:05] LABS: GLUCOMETER DEV NAME(LOC) 5S.1B; GLUCOSE,POINT OF CARE 124 MG/DL (70-110)
[2022-04-04 08:06] LABS: GLUCOMETER DEV NAME(LOC) 5S.1B; GLUCOSE,POINT OF CARE 118 MG/DL (70-110)
[2022-04-04 08:25] VITALS: BP 148/83
[2022-04-04] MEDS: MAGNESIUM HYDROXIDE SUSPENSION 30 ML UDCUP PO PRN (08:37)
[2022-04-04] MEDS: PANTOPRAZOLE SODIUM 40 MG DR TABLET PO SCH ×2 (08:38→20:16)
[2022-04-04] MEDS ORDERED: POTASSIUM CHLORIDE 10 MEQ ER TABLET PO ONE (09:45)
[2022-04-04] MEDS: MORPHINE SULFATE 2 MG/ML SYRINGE IVP PRN ×2 (10:44→20:16)
[2022-04-04 11:38] VITALS: BP 157/80
[2022-04-04 11:40] LABS: INR 0.9 (0.9-1.1); PROTHROMBIN TIME 9.9 SEC (9.4-11.6)
[2022-04-04] MEDS: AmLODIPine BESYLATE 10 MG TABLET PO SCH (15:59)
[2022-04-04 16:31] VITALS: BP 144/84
[2022-04-04] MEDS: INSULIN LISPRO 100 UNITS/ML SQ PRN (18:25)
[2022-04-04 20:00] VITALS: BP 148/76
[2022-04-04 20:06] LABS: GLUCOMETER DEV NAME(LOC) 5N.1C; GLUCOSE,POINT OF CARE 142 MG/DL (70-110)
[2022-04-04 20:06] LABS: GLUCOMETER DEV NAME(LOC) 5N.1C; GLUCOSE,POINT OF CARE 122 MG/DL (70-110)
[2022-04-04 20:36] LABS: GLUCOMETER DEV NAME(LOC) 5S.2B; GLUCOSE,POINT OF CARE 129 MG/DL (70-110)
[2022-04-04] MEDS: GuaiFENesin/D-METHORPHAN [SUGAR-FREE] 200-20MG/10 ML SYRUP UDCUP PO PRN (22:17)
[2022-04-05] VITALS: BP 140/73
[2022-04-05] MEDS: METOCLOPRAMIDE HCL 5 MG/ML 2 ML VIAL IVP PRN ×2 (01:48→23:05)
[2022-04-05 04:00] VITALS: BP 147/84
[2022-04-05] MEDS: MORPHINE SULFATE 2 MG/ML SYRINGE IVP PRN ×2 (04:56→20:02)
[2022-04-05 05:49] LABS: BASOPHILS % (AUTO) 0.6 % (0.0-2.0); EOSINOPHILS % (AUTO) 2.3 % (1.0-6.0); HEMATOCRIT 28.8 % (36-46); HEMOGLOBIN 9.5 g/dL (12.0-16.0); LYMPHOCYTES # (AUTO) 1.7 K/uL (1.0-4.8); LYMPHOCYTES % (AUTO) 23.1 % (22.0-44.0); MEAN CORPUSCULAR HGB CONC 32.8 G/dL (31.0-37.0); MEAN CORPUSCULAR VOLUME 82 fL (80-100); MONOCYTES # (AUTO) 0.6 K/uL (0.1-1.0); MONOCYTES % (AUTO) 7.6 % (2.0-9.0); NEUTROPHILS % (AUTO) 66.4 % (40.0-70.0); PLATELET COUNT (AUTO) 197 K/uL (150-450); RED BLOOD CELL COUNT(AUTO) 3.51 MIL/uL (4.00-5.20)
[2022-04-05 06:03] LABS: CALCIUM, TOTAL 7.7 mg/dL (8.8-10.5); CREATININE 2.91 mg/dL (0.60-1.30); MAGNESIUM 1.7 mg/dL (1.80-2.40); PHOSPHORUS 3.7 mg/dL (2.5-4.9); POTASSIUM 3.5 mmol/L (3.5-5.1)
[2022-04-05 07:45] VITALS: BP 151/82
[2022-04-05] MEDS ORDERED: MAGNESIUM OXIDE 400 MG TABLET PO ONE (07:45)
[2022-04-05] MEDS: PANTOPRAZOLE SODIUM 40 MG DR TABLET PO SCH ×2 (08:01→20:01)
[2022-04-05] MEDS: ONDANSETRON HCL 4 MG/2 ML VIAL IVP PRN (08:02)
[2022-04-05 11:56] LABS: GLUCOMETER DEV NAME(LOC) 5S.1B; GLUCOSE,POINT OF CARE 104 MG/DL (70-110)
[2022-04-05 11:57] LABS: GLUCOMETER DEV NAME(LOC) 5S.1B; GLUCOSE,POINT OF CARE 103 MG/DL (70-110)
[2022-04-05 12:00] VITALS: BP 152/89
[2022-04-05] MEDS ORDERED: SODIUM CHLORIDE 0.9% 250 ML IV ONE (13:12)
[2022-04-05] MEDS: CefTRIAXone 1 GM/DEXTROSE 50 ML IV SCH (13:23)
[2022-04-05 16:25] VITALS: BP 151/87
[2022-04-05] MEDS: AmLODIPine BESYLATE 10 MG TABLET PO SCH (17:06)
[2022-04-05 17:36] LABS: GLUCOMETER DEV NAME(LOC) 5S.1B; GLUCOSE,POINT OF CARE 134 MG/DL (70-110)
[2022-04-05 19:45] VITALS: BP 129/87
[2022-04-05] MEDS: GuaiFENesin/D-METHORPHAN [SUGAR-FREE] 200-20MG/10 ML SYRUP UDCUP PO PRN (20:01)
[2022-04-05] MEDS: ACETAMINOPHEN 325 MG TABLET PO PRN (21:42)
[2022-04-06] VITALS: BP 150/77
[2022-04-06] MEDS: MORPHINE SULFATE 2 MG/ML SYRINGE IVP PRN ×2 (04:20→14:36)
[2022-04-06 04:35] VITALS: BP 137/83
[2022-04-06 06:01] LABS: GLUCOMETER DEV NAME(LOC) 5S.1B; GLUCOSE,POINT OF CARE 140 MG/DL (70-110)
[2022-04-06 06:38] LABS: CALCIUM, TOTAL 7.7 mg/dL (8.8-10.5); CREATININE 2.93 mg/dL (0.60-1.30); MAGNESIUM 1.8 mg/dL (1.80-2.40); PHOSPHORUS 3.7 mg/dL (2.5-4.9); POTASSIUM 3.7 mmol/L (3.5-5.1)
[2022-04-06 07:20] VITALS: BP 152/90
[2022-04-06] MEDS: PANTOPRAZOLE SODIUM 40 MG DR TABLET PO SCH ×2 (09:34→20:13)
[2022-04-06] MEDS: INSULIN LISPRO 100 UNITS/ML SQ PRN (11:54)
[2022-04-06 12:00] VITALS: BP 150/87
[2022-04-06] MEDS: CefTRIAXone 1 GM/DEXTROSE 50 ML IV SCH (14:37)
[2022-04-06 15:16] LABS: GLUCOMETER DEV NAME(LOC) 5S.2B; GLUCOSE,POINT OF CARE 150 MG/DL (70-110)
[2022-04-06 16:45] VITALS: BP 163/82
[2022-04-06] MEDS: AmLODIPine BESYLATE 10 MG TABLET PO SCH (18:03)
[2022-04-06 19:25] VITALS: BP 164/92
[2022-04-06] MEDS: CloNIDine HCL 0.1 MG TABLET PO PRN (20:13)
[2022-04-06] MEDS: METOCLOPRAMIDE HCL 5 MG/ML 2 ML VIAL IVP PRN (20:13)
[2022-04-07] VITALS (7 sets, daily range): BP systolic 134–152; BP diastolic 68–76
[2022-04-07 00:37] LABS: GLUCOMETER DEV NAME(LOC) 5N.1C; GLUCOSE,POINT OF CARE 131 MG/DL (70-110)
[2022-04-07] MEDS: MORPHINE SULFATE 2 MG/ML SYRINGE IVP PRN ×2 (05:38→21:12)
[2022-04-07 05:51] LABS: GLUCOMETER DEV NAME(LOC) 5N.1C; GLUCOSE,POINT OF CARE 128 MG/DL (70-110)
[2022-04-07 08:44] LABS: CREATININE 2.68 mg/dL (0.60-1.30); MAGNESIUM 1.9 mg/dL (1.80-2.40); PHOSPHORUS 3.5 mg/dL (2.5-4.9); POTASSIUM 3.7 mmol/L (3.5-5.1)
[2022-04-07] MEDS: PANTOPRAZOLE SODIUM 40 MG DR TABLET PO SCH ×2 (09:30→21:12)
[2022-04-07] MEDS: ONDANSETRON HCL 4 MG/2 ML VIAL IVP PRN (09:30)
[2022-04-07] MEDS ORDERED: FLUMAZENIL 0.1 MG/ML 5 ML VIAL IVP ONE (13:22)
[2022-04-07] MEDS ORDERED: GELATIN SPONGE,ABSORBABLE 12-7 MM TP ONE (13:22)
[2022-04-07] MEDS ORDERED: MIDAZOLAM HCL 2 MG/2 ML VIAL ONE (13:22)
[2022-04-07] MEDS ORDERED: NALOXONE HCL 0.4 MG/ML VIAL ONE (13:22)
[2022-04-07] MEDS ORDERED: FentaNYL CITRATE PF 100 MCG/2 ML VIAL ONE (13:22)
[2022-04-07] MEDS ORDERED: FentaNYL CITRATE PF 100 MCG/2 ML VIAL IVP ONE ×2 (15:45)
[2022-04-07] MEDS ORDERED: MIDAZOLAM HCL 2 MG/2 ML VIAL IVP ONE (15:45)
[2022-04-07] MEDS: CefTRIAXone 1 GM/DEXTROSE 50 ML IV SCH (16:57)
[2022-04-07] MEDS: AmLODIPine BESYLATE 10 MG TABLET PO SCH (16:57)
[2022-04-07 20:07] LABS: GLUCOMETER DEV NAME(LOC) 5S.1B; GLUCOSE,POINT OF CARE 129 MG/DL (70-110)
[2022-04-07 20:07] LABS: GLUCOMETER DEV NAME(LOC) 5S.1B; GLUCOSE,POINT OF CARE 105 MG/DL (70-110)
[2022-04-07] MEDS: INSULIN LISPRO 100 UNITS/ML SQ PRN (21:13)
[2022-04-08] MEDS: GuaiFENesin/D-METHORPHAN [SUGAR-FREE] 200-20MG/10 ML SYRUP UDCUP PO PRN (00:39)
[2022-04-08 01:00] VITALS: BP 138/67
[2022-04-08] MEDS: MORPHINE SULFATE 2 MG/ML SYRINGE IVP PRN (03:00)
[2022-04-08 04:44] VITALS: BP 153/73
[2022-04-08 06:57] LABS: BASOPHILS % (AUTO) 0.7 % (0.0-2.0); EOSINOPHILS % (AUTO) 2.6 % (1.0-6.0); HEMATOCRIT 26.5 % (36-46); HEMOGLOBIN 8.9 g/dL (12.0-16.0); LYMPHOCYTES # (AUTO) 2.2 K/uL (1.0-4.8); LYMPHOCYTES % (AUTO) 26.1 % (22.0-44.0); MEAN CORPUSCULAR HEMOGLOBIN 28.1 pg (26.0-34.0); MEAN CORPUSCULAR HGB CONC 33.7 G/dL (31.0-37.0); MEAN CORPUSCULAR VOLUME 84 fL (80-100); MONOCYTES # (AUTO) 0.7 K/uL (0.1-1.0); MONOCYTES % (AUTO) 8.7 % (2.0-9.0); NEUTROPHILS # (AUTO) 5.3 K/uL (1.8-7.7); NEUTROPHILS % (AUTO) 61.9 % (40.0-70.0); PLATELET COUNT (AUTO) 227 K/uL (150-450); RED BLOOD CELL COUNT(AUTO) 3.18 MIL/uL (4.00-5.20); RED CELL DISTRIBUTION WIDTH 13.5 % (11.5-14.5)
[2022-04-08 07:08] LABS: CALCIUM, TOTAL 7.6 mg/dL (8.8-10.5); CREATININE 2.65 mg/dL (0.60-1.30); POTASSIUM 3.8 mmol/L (3.5-5.1)
[2022-04-08 07:13] VITALS: BP 157/78
[2022-04-08] MEDS: PANTOPRAZOLE SODIUM 40 MG DR TABLET PO SCH ×2 (09:11→21:12)
[2022-04-08 11:32] VITALS: BP 142/74
[2022-04-08 12:17] LABS: GLUCOMETER DEV NAME(LOC) 5S.2B; GLUCOSE,POINT OF CARE 246 MG/DL (70-110)
[2022-04-08 12:17] LABS: GLUCOMETER DEV NAME(LOC) 5S.2B; GLUCOSE,POINT OF CARE 132 MG/DL (70-110)
[2022-04-08 12:17] LABS: GLUCOMETER DEV NAME(LOC) 5S.2B; GLUCOSE,POINT OF CARE 121 MG/DL (70-110)
[2022-04-08 13:34] LABS: APPEARANCE,URINE CLEAR (CLEAR); BILIRUBIN,URINE NEGATIVE (NEGATIVE); GLUCOSE, URINE (UA) 300-500 mg/dL (NEGATIVE); KETONES,URINE NEGATIVE (NEGATIVE); LEUKOCYTE ESTERASE ,URINE NEGATIVE (NEGATIVE); NITRATE,URINE NEGATIVE (NEGATIVE); OCCULT BLOOD,URINE SMALL (NEGATIVE); PH,URINE 6.5 (5.0-8.0); PROTEIN,URINE 300-600,SEE CONFIRM mg/dL (NEGATIVE); SPECIFIC GRAVITIY, URINE 1.013 (1.003-1.030); UROBILINOGEN,URINE <=1.0 mg/dL (<=1.0)
[2022-04-08 13:58] LABS: BACTERIA,URINE Rare /HPF (None Seen); CALCIUM OXALATE CRYSTALS,UR None Seen /LPF (None Seen); CALCIUM PHOSPHATE CRYSTALS,UR None Seen /LPF (None Seen); RENAL EPITHELIAL CELLS,URINE None Seen /LPF (None Seen); SQUAMOUS EPITHELIAL CELL,UR Rare /LPF (None Seen); TRANSITIONAL EPI CELLS,URINE None Seen /LPF (None Seen); WBC,URINE 0-2 /HPF (0-5); YEAST,URINE None Seen /HPF (None Seen)
[2022-04-08 13:59] LABS: AMORPHOUS SEDIMENT,UR None Seen /LPF (None Seen); COARSE GRANULAR CASTS,URINE None Seen /LPF (None Seen); FINE GRANULAR CASTS,URINE None Seen /LPF (None Seen); MUCUS,URINE Rare LPF (None Seen); OTHER CASTS, URINE None Seen /LPF (None Seen); OTHER CRYSTALS,URINE None Seen /LPF (None Seen); STARCH,URINE None Seen /LPF (None Seen); TRIPLE PHOSPHATE CRYSTAL,UR None Seen /LPF (None Seen); URIC ACID CRYSTALS,URINE None Seen /LPF (None Seen)
[2022-04-08 14:00] LABS: HYALINE CASTS, URINE 0-2 /LPF (None Seen)
[2022-04-08 14:01] LABS: SULFOSALICYLIC ACID,URINE 3+ (Negative)
[2022-04-08] MEDS: CefTRIAXone 1 GM/DEXTROSE 50 ML IV SCH (14:07)
[2022-04-08 15:13] VITALS: BP 150/78
[2022-04-08] MEDS: INSULIN LISPRO 100 UNITS/ML SQ PRN ×2 (17:23→21:13)
[2022-04-08] MEDS: AmLODIPine BESYLATE 10 MG TABLET PO SCH (17:24)
[2022-04-08 19:50] VITALS: BP 150/72
[2022-04-08] MEDS ORDERED: GABAPENTIN 300 MG CAPSULE PO SCH (21:15)
[2022-04-08] MEDS ORDERED: DiphenhydrAMINE HCL 25 MG CAPSULE PO ONE (21:15)
[2022-04-08 21:16] LABS: GLUCOMETER DEV NAME(LOC) 5S.1B; GLUCOSE,POINT OF CARE 140 MG/DL (70-110)
[2022-04-08 21:17] LABS: GLUCOMETER DEV NAME(LOC) 5S.2B; GLUCOSE,POINT OF CARE 152 MG/DL (70-110)
[2022-04-08 23:33] LABS: BASOPHILS % (AUTO) 0.8 % (0.0-2.0); HEMATOCRIT 24.9 % (36-46); HEMOGLOBIN 8.4 g/dL (12.0-16.0); LYMPHOCYTES # (AUTO) 1.9 K/uL (1.0-4.8); LYMPHOCYTES % (AUTO) 24.5 % (22.0-44.0); MEAN CORPUSCULAR HEMOGLOBIN 27.4 pg (26.0-34.0); MEAN CORPUSCULAR HGB CONC 33.6 G/dL (31.0-37.0); MEAN CORPUSCULAR VOLUME 81 fL (80-100); MONOCYTES # (AUTO) 0.6 K/uL (0.1-1.0); MONOCYTES % (AUTO) 8.2 % (2.0-9.0); NEUTROPHILS % (AUTO) 63.5 % (40.0-70.0); PLATELET COUNT (AUTO) 237 K/uL (150-450); RED BLOOD CELL COUNT(AUTO) 3.06 MIL/uL (4.00-5.20); RED CELL DISTRIBUTION WIDTH 13.1 % (11.5-14.5)
[2022-04-08 23:42] LABS: CALCIUM, TOTAL 7.8 mg/dL (8.8-10.5); CREATININE 2.64 mg/dL (0.60-1.30); POTASSIUM 4.1 mmol/L (3.5-5.1)
[2022-04-09 00:16] VITALS: BP 118/73
[2022-04-09 04:37] VITALS: BP 143/70
[2022-04-09 06:27] LABS: GLUCOMETER DEV NAME(LOC) 5S.2B; GLUCOSE,POINT OF CARE 100 MG/DL (70-110)
[2022-04-09 06:56] LABS: CALCIUM, TOTAL 7.9 mg/dL (8.8-10.5); CREATININE 2.63 mg/dL (0.60-1.30); MAGNESIUM 1.9 mg/dL (1.80-2.40); PHOSPHORUS 3.9 mg/dL (2.5-4.9); POTASSIUM 4.1 mmol/L (3.5-5.1)
[2022-04-09 08:07] VITALS: BP 138/81
[2022-04-09] MEDS: PANTOPRAZOLE SODIUM 40 MG DR TABLET PO SCH (09:31)
[2022-04-09] MEDS: MAGNESIUM HYDROXIDE SUSPENSION 30 ML UDCUP PO PRN (09:37)
[2022-04-09 12:01] VITALS: BP 149/77
[2022-04-09 12:41] LABS: GLUCOMETER DEV NAME(LOC) 5S.2B; GLUCOSE,POINT OF CARE 137 MG/DL (70-110)
[2022-04-09] MEDS ORDERED: GABA-1181 PO (14:05)
[2022-04-09] MEDS ORDERED: AMLO-258 PO (14:05)
[2022-04-09] MEDS ORDERED: PANT-31 PO (14:05)
[2022-04-09] MEDS: CefTRIAXone 1 GM/DEXTROSE 50 ML IV SCH (14:39)
[2022-04-09 15:49] VITALS: BP 160/74
[2022-04-09] MEDS: AmLODIPine BESYLATE 10 MG TABLET PO SCH (17:24)
[2022-04-09] MEDS: INSULIN LISPRO 100 UNITS/ML SQ PRN (17:33)
== END 2022-04-09 18:20 | disposition home or self-care (01) | DRG 241 ==
LOC: EMS 08:54 → 5S 22:16
PROVIDERS: ADMIT Internal Medicine; ATTEND Internal Medicine
PROC: 30233N1 Transfusion of Nonautologous Red Blood Cells into Peripheral Vein, Percutaneous Approach (ICD-10-PCS; 2022-04-02)
PROC: 0DB68ZX Excision of Stomach, Via Natural or Artificial Opening Endoscopic, Diagnostic (ICD-10-PCS; principal; 2022-04-02 10:00)
DX: K29.61 Other gastritis with bleeding (principal); E87.20 Acidosis, unspecified; K22.11 Ulcer of esophagus with bleeding; N17.9 Acute kidney failure, unspecified; D63.8 Anemia in other chronic diseases classified elsewhere; D62 Acute posthemorrhagic anemia; E11.22 Type 2 diabetes mellitus with diabetic chronic kidney disease; K31.84 Gastroparesis; E11.43 Type 2 diabetes mellitus with diabetic autonomic (poly)neuropathy; E11.65 Type 2 diabetes mellitus with hyperglycemia; I12.9 Hypertensive chronic kidney disease with stage 1 through stage 4 chronic kidney disease, or unspecified chronic kidney disease; E78.5 Hyperlipidemia, unspecified; J10.1 Influenza due to other identified influenza virus with other respiratory manifestations; E87.6 Hypokalemia; N18.9 Chronic kidney disease, unspecified; Z20.822 Contact with and (suspected) exposure to COVID-19; Z79.4 Long term (current) use of insulin; Z79.84 Long term (current) use of oral hypoglycemic drugs; Z79.899 Other long term (current) drug therapy; Z82.49 Family history of ischemic heart disease and other diseases of the circulatory system; Z83.3 Family history of diabetes mellitus; Z88.8 Allergy status to other drugs, medicaments and biological substances; Z91.013 Allergy to seafood
CPT/HCPCS: 50200; 70450; 71045; 74176; 76700; 80048; 80053; 81001; 81002; 82271; 82550; 82570; 82962; 83036; 83605; 83690; 83735; 84100; 84132; 84156; 84300; 84540; 84703; 85014; 85018; 85025; 85610; 86038; 86160; 86256; 86850; 86900; 86901; 86923; 87040; 87804; 88305; 99291; C9113; J0696; J1170; J2250; J2270; J2310; J2405; J2704; J2765; J3010; J3475; J3490; J7030; J7040; J7050; J7060; P9016; 36415-L1; 36415-TC

== ENCOUNTER 2022-06-08 10:53 | Emergency (ER) | payer MEDICAID ==
[~2022-06-08] VITALS: Ht 162.6 cm; Wt 68.0 kg
[~2022-06-08 10:53] MED LIST changes: +BUME1TAB34 PO; +CALC0.2521 PO; +ENAL20TA18 PO; +EZET10TA57 PO; +FERR324T3 PO; +GABA-1181 PO; -INSLAN SQ; +INSU3INS3 SQ; -MAGN400T7 PO; -METF-1211 PO; +METO25 PO; -METO5TAB95 PO; +NIFE-40 PO; +PANT-31 PO; -PIOG15TA6 PO; +[UNRECOGNIZED DRUG - CODE] SQ
[2022-06-08] MEDS ORDERED: SODIUM CHLORIDE 0.9% 1,000 ML IV ONE (12:00)
[2022-06-08 12:37] LABS: BASOPHILS % (AUTO) 0.5 % (0.0-2.0); EOSINOPHILS % (AUTO) 0.5 % (1.0-6.0); HEMATOCRIT 28.2 % (36-46); HEMOGLOBIN 8.8 g/dL (12.0-16.0); LYMPHOCYTES # (AUTO) 0.5 K/uL (1.0-4.8); LYMPHOCYTES % (AUTO) 3.5 % (22.0-44.0); MEAN CORPUSCULAR HGB CONC 31.3 G/dL (31.0-37.0); MEAN CORPUSCULAR VOLUME 83 fL (80-100); MONOCYTES # (AUTO) 0.7 K/uL (0.1-1.0); MONOCYTES % (AUTO) 4.5 % (2.0-9.0); NEUTROPHILS # (AUTO) 13.4 K/uL (1.8-7.7); PLATELET COUNT (AUTO) 265 K/uL (150-450); RED CELL DISTRIBUTION WIDTH 14.9 % (11.5-14.5)
[2022-06-08 12:42] LABS: CALCIUM, TOTAL 7.9 mg/dL (8.8-10.5); CREATININE 4.08 mg/dL (0.60-1.30); POTASSIUM 4.3 mmol/L (3.5-5.1)
[2022-06-08] MEDS ORDERED: ONDANSETRON HCL 4 MG/2 ML VIAL IVP ONE (12:45)
[2022-06-08 12:58] LABS: ALBUMIN 1.6 g/dL (3.4-5.0); BILIRUBIN,TOTAL 0.3 mg/dL (0.1-1.0); TOTAL PROTEIN, SERUM 5.1 g/dL (6.4-8.2)
[2022-06-08] MEDS ORDERED: ACETAMINOPHEN 500 MG TABLET PO ONE (13:45)
[2022-06-08 15:39] LABS: COVID AG,FIA SOURCE NASAL SWAB
[2022-06-08 16:10] LABS: INFLUENZA TYPE A NEGATIVE FOR TYPE A (NEGATIVE); INFLUENZA TYPE B NEGATIVE FOR TYPE B (NEGATIVE)
[2022-06-08] MEDS ORDERED: AZITHROMYCIN 500 MG/NS 250 ML IV ONE (16:30)
[2022-06-08] MEDS ORDERED: CefTRIAXone 1 GM/DEXTROSE 50 ML IV ONE (16:30)
[2022-06-08 18:41] LABS: APPEARANCE,URINE CLEAR (CLEAR); BILIRUBIN,URINE NEGATIVE (NEGATIVE); GLUCOSE, URINE (UA) 300-500 mg/dL (NEGATIVE); KETONES,URINE NEGATIVE (NEGATIVE); LEUKOCYTE ESTERASE ,URINE NEGATIVE (NEGATIVE); NITRATE,URINE NEGATIVE (NEGATIVE); OCCULT BLOOD,URINE SMALL (NEGATIVE); PROTEIN,URINE >600,SEE CONFIRM mg/dL (NEGATIVE); SPECIFIC GRAVITIY, URINE 1.018 (1.003-1.030); UROBILINOGEN,URINE <=1.0 mg/dL (<=1.0)
[2022-06-08] MEDS ORDERED: AZIT250T9 PO (19:09)
[2022-06-08 19:14] LABS: SULFOSALICYLIC ACID,URINE 4+ (Negative)
[2022-06-08 19:15] LABS: RBC,URINE 0-2 /HPF (0-2); WBC,URINE 0-2 /HPF (0-5)
[2022-06-08] MEDS ORDERED: PB/HYOSCY/ATR/SCOP/LIDO/MAALOX 55 ML BOTTLE PO ONE (19:15)
[2022-06-08 19:16] LABS: BACTERIA,URINE None Seen /HPF (None Seen)
[2022-06-08 19:24] VITALS: BP 154/89
== END 2022-06-08 19:37 | disposition home or self-care (01) ==
LOC: EMS 11:01
DX: J18.9 Pneumonia, unspecified organism (principal); R10.13 Epigastric pain; K20.90 Esophagitis, unspecified without bleeding; R11.2 Nausea with vomiting, unspecified; E11.9 Type 2 diabetes mellitus without complications; I10 Essential (primary) hypertension; Z98.890 Other specified postprocedural states; Z91.018 Allergy to other foods; Z91.013 Allergy to seafood; Z20.822 Contact with and (suspected) exposure to COVID-19
CPT/HCPCS: 99285; 96374; 96361; 96366; 96375; 87426; 80053; 81001; 83690; 84703; 85025; 87804; 36415; 74022; 93005; J0456; J0696; J2405; J7030; 81002

== ENCOUNTER 2022-06-14 03:18 | Emergency (ER) | payer MEDICAID ==
[~2022-06-14] VITALS: Ht 162.6 cm; Wt 72.7 kg
[~2022-06-14 03:18] MED LIST changes: +AZIT250T9 PO
[2022-06-14] MEDS ORDERED: HYDROCODONE/ACETAMINOPHEN 5-325 MG TABLET PO ONE (04:00)
[2022-06-14 04:02] LABS: COVID AG,FIA SOURCE NASAL SWAB
[2022-06-14 04:16] LABS: BASOPHILS % (AUTO) 1.4 % (0.0-2.0); EOSINOPHILS % (AUTO) 1.2 % (1.0-6.0); HEMATOCRIT 32.2 % (36-46); HEMOGLOBIN 10.3 g/dL (12.0-16.0); LYMPHOCYTES # (AUTO) 1.3 K/uL (1.0-4.8); MEAN CORPUSCULAR HGB CONC 32.1 G/dL (31.0-37.0); MEAN CORPUSCULAR VOLUME 81 fL (80-100); MONOCYTES # (AUTO) 0.4 K/uL (0.1-1.0); MONOCYTES % (AUTO) 6.3 % (2.0-9.0); NEUTROPHILS # (AUTO) 4.4 K/uL (1.8-7.7); NEUTROPHILS % (AUTO) 71.1 % (40.0-70.0); PLATELET COUNT (AUTO) 271 K/uL (150-450); RED BLOOD CELL COUNT(AUTO) 3.98 MIL/uL (4.00-5.20); RED CELL DISTRIBUTION WIDTH 14.9 % (11.5-14.5)
[2022-06-14 04:25] LABS: CALCIUM, TOTAL 7.6 mg/dL (8.8-10.5); CREATININE 4.46 mg/dL (0.60-1.30); POTASSIUM 3.7 mmol/L (3.5-5.1)
[2022-06-14 04:29] LABS: INFLUENZA TYPE A NEGATIVE FOR TYPE A (NEGATIVE); INFLUENZA TYPE B NEGATIVE FOR TYPE B (NEGATIVE)
[2022-06-14 04:30] LABS: ALBUMIN 1.4 g/dL (3.4-5.0); BILIRUBIN,TOTAL 0.2 mg/dL (0.1-1.0); TOTAL PROTEIN, SERUM 5.4 g/dL (6.4-8.2)
[2022-06-14] MEDS ORDERED: METOCLOPRAMIDE HCL 5 MG/ML 2 ML VIAL IVP ONE (04:45)
[2022-06-14] MEDS ORDERED: CYCL-448 PO (06:01)
[2022-06-14] MEDS ORDERED: FAMOTIDINE 20 MG TABLET PO ONE (08:30)
[2022-06-14] MEDS ORDERED: ACETAMINOPHEN 500 MG TABLET PO ONE (08:30)
[2022-06-14] MEDS ORDERED: MAG HYDROX/AL HYDROX/SIMETH 30 ML SUSP UDCUP PO ONE (08:30)
[2022-06-14 08:45] VITALS: BP 148/84
== END 2022-06-14 09:25 | disposition home or self-care (01) ==
LOC: EMS 03:20
DX: M54.50 Low back pain, unspecified (principal); M54.2 Cervicalgia; E11.9 Type 2 diabetes mellitus without complications; I10 Essential (primary) hypertension; R11.2 Nausea with vomiting, unspecified; Z20.822 Contact with and (suspected) exposure to COVID-19; Z91.013 Allergy to seafood; Z91.018 Allergy to other foods
CPT/HCPCS: 99284; 96374; 87426; 80053; 85025; 87804; 36415; 72040; J2765

== ENCOUNTER 2022-06-18 09:04 | Emergency (ER) | payer MEDICAID ==
[~2022-06-18] VITALS: Ht 162.6 cm; Wt 72.7 kg
[~2022-06-18 09:04] MED LIST changes: -AZIT250T9 PO; +CYCL-448 PO
[2022-06-18 09:37] LABS: EOSINOPHILS % (AUTO) 1.3 % (1.0-6.0); HEMATOCRIT 33.9 % (36-46); HEMOGLOBIN 11.1 g/dL (12.0-16.0); LYMPHOCYTES # (AUTO) 2.2 K/uL (1.0-4.8); LYMPHOCYTES % (AUTO) 22.5 % (22.0-44.0); MEAN CORPUSCULAR HEMOGLOBIN 26.3 pg (26.0-34.0); MEAN CORPUSCULAR HGB CONC 32.8 G/dL (31.0-37.0); MEAN CORPUSCULAR VOLUME 80 fL (80-100); MONOCYTES # (AUTO) 0.5 K/uL (0.1-1.0); MONOCYTES % (AUTO) 4.7 % (2.0-9.0); NEUTROPHILS # (AUTO) 6.9 K/uL (1.8-7.7); NEUTROPHILS % (AUTO) 70.5 % (40.0-70.0); PLATELET COUNT (AUTO) 264 K/uL (150-450); RED BLOOD CELL COUNT(AUTO) 4.22 MIL/uL (4.00-5.20)
[2022-06-18 09:39] LABS: COVID AG,FIA SOURCE NASAL SWAB
[2022-06-18] MEDS ORDERED: PB/HYOSCY/ATR/SCOP/LIDO/MAALOX 55 ML BOTTLE PO ONE (09:45)
[2022-06-18] MEDS ORDERED: SODIUM CHLORIDE 0.9% 1,000 ML IV ONE (09:45)
[2022-06-18 09:46] LABS: CALCIUM, TOTAL 8.3 mg/dL (8.8-10.5); CREATININE 3.97 mg/dL (0.60-1.30); POTASSIUM 3.2 mmol/L (3.5-5.1)
[2022-06-18 09:52] LABS: ALBUMIN 1.6 g/dL (3.4-5.0); BILIRUBIN,TOTAL 0.3 mg/dL (0.1-1.0); TOTAL PROTEIN, SERUM 5.7 g/dL (6.4-8.2)
[2022-06-18] MEDS ORDERED: MORPHINE SULFATE 4 MG/ML SYRINGE IVP ONE (13:30)
[2022-06-18] MEDS ORDERED: HYDR-4723 PO (14:22)
[2022-06-18] MEDS ORDERED: ONDA-104 PO (14:22)
[2022-06-18 14:30] VITALS: BP 174/90
== END 2022-06-18 14:54 | disposition home or self-care (01) ==
LOC: EMS 09:06
DX: K85.90 Acute pancreatitis without necrosis or infection, unspecified (principal); E87.6 Hypokalemia; E11.22 Type 2 diabetes mellitus with diabetic chronic kidney disease; I12.9 Hypertensive chronic kidney disease with stage 1 through stage 4 chronic kidney disease, or unspecified chronic kidney disease; N18.9 Chronic kidney disease, unspecified; Z98.890 Other specified postprocedural states; Z91.013 Allergy to seafood; Z91.018 Allergy to other foods; Z88.8 Allergy status to other drugs, medicaments and biological substances; Z20.822 Contact with and (suspected) exposure to COVID-19
CPT/HCPCS: 99285; 74176; 96374; 96361; 87426; 80053; 82962; 83690; 84702; 85025; 36415; J2270; J7030

== ENCOUNTER 2025-03-09 03:23 | Inpatient (IN) | payer MEDICAID ==
[~2025-03-09] VITALS: Ht 162.6 cm; Wt 68.1 kg
[~2025-03-09 03:23] MED LIST changes: -BUME1TAB34 PO; +BUME1TAB50 PO; +ENAL-128 PO; -ENAL20TA18 PO; +HYDR-4062 PO
[2025-03-09] MEDS: ONDANSETRON HCL 4 MG/2 ML VIAL IVP ONE ×3 (04:29→06:29)
[2025-03-09] MEDS: MORPHINE SULFATE 4 MG/ML SYRINGE IVP ONE (04:29)
[2025-03-09 04:45] LABS: PLATELET COUNT (AUTO) 247 K/uL (150-450); RED BLOOD CELL COUNT(AUTO) 4.41 MIL/uL (4.00-5.20); RED CELL DISTRIBUTION WIDTH 14.8 % (11.5-14.5); WHITE BLOOD COUNT (AUTO) 10.1 K/uL (4.5-11.0)
[2025-03-09 04:52] LABS: CALCIUM, TOTAL 9.7 mg/dL (8.8-10.5); CREATININE 8.68 mg/dL (0.60-1.30); GLOMERULAR FILTR. RATE CALC 5 mL/min (>60); GLUCOSE,RANDOM 257 mg/dL (70-110); SODIUM SERUM 130 mmol/L (136-145); UREA NITROGEN, BLOOD 66 mg/dL (7-18)
[2025-03-09 04:57] LABS: ASPARTATE AMINOTRANSFERASE 10.0 U/L (15-37); TOTAL PROTEIN, SERUM 8.7 g/dL (6.4-8.2)
[2025-03-09 05:01] LABS: TROPONIN I-HIGH SENSITIVITY 10 ng/L (<51)
[2025-03-09 07:27] LABS: APPEARANCE,URINE CLEAR (CLEAR); GLUCOSE, URINE (UA) 300-500 mg/dL (NEGATIVE); LEUKOCYTE ESTERASE ,URINE SMALL (NEGATIVE); NITRATE,URINE NEGATIVE (NEGATIVE); OCCULT BLOOD,URINE LARGE (NEGATIVE); SPECIFIC GRAVITIY, URINE 1.014 (1.003-1.030)
[2025-03-09 07:39] LABS: SULFOSALICYLIC ACID,URINE 2+ (Negative)
[2025-03-09 07:42] LABS: SQUAMOUS EPITHELIAL CELL,UR Few /LPF (None Seen)
[2025-03-09 09:59] VITALS: BP 130/67; PULSE 103; RESP 15; TEMP 97.7; O2SAT 99
[2025-03-09 11:11] VITALS: BP 120/64; PULSE 103; RESP 16; TEMP 97.7; O2SAT 99
[2025-03-09] MEDS: ONDANSETRON HCL 4 MG/2 ML VIAL IVP PRN (11:59)
[2025-03-09 12:03] LABS: PLATELET COUNT (AUTO) 264 K/uL (150-450); RED BLOOD CELL COUNT(AUTO) 4.65 MIL/uL (4.00-5.20); RED CELL DISTRIBUTION WIDTH 14.7 % (11.5-14.5); WHITE BLOOD COUNT (AUTO) 13.5 K/uL (4.5-11.0)
[2025-03-09 12:20] LABS: RBC MORPHOLOGY COMMENT NORMAL RBC MORPH
[2025-03-09] MEDS: PANTOPRAZOLE SODIUM 80 MG in SODIUM CHLORIDE 0.9% 100 ML IV SCH (12:30)
[2025-03-09] MEDS ORDERED: DEXTROSE 50%-WATER 25 GM/50 ML SYRINGE IVP PRN (13:30)
[2025-03-09 13:51] LABS: GLUCOMETER DEV NAME(LOC) 5N.1D; GLUCOSE,POINT OF CARE 274 MG/DL (70-110)
[2025-03-09] MEDS: POTASSIUM CHL 10 MEQ/WATER 50 ML IV SCH (13:55)
[2025-03-09] MEDS: SODIUM CHLORIDE 0.9% 500 ML IV ONE (13:55)
[2025-03-09 15:45] VITALS: BP 110/60; PULSE 103; RESP 14; TEMP 98.4; O2SAT 98
[2025-03-09] MEDS: MORPHINE SULFATE 4 MG/ML SYRINGE IVP PRN (16:00)
[2025-03-09 18:16] LABS: GLUCOMETER DEV NAME(LOC) 5S.2E; GLUCOSE,POINT OF CARE 236 MG/DL (70-110)
[2025-03-09] MEDS: INSULIN LISPRO 100 UNITS/ML SQ PRN (18:16)
[2025-03-09 19:38] VITALS: BP 143/76; PULSE 101; RESP 17; TEMP 98.4; O2SAT 100
[2025-03-09] MEDS: DOCUSATE SODIUM 100 MG CAPSULE PO SCH (20:33)
[2025-03-09] MEDS: CefTRIAXone 1 GM/DEXTROSE 50 ML IV SCH (21:27)
[2025-03-09 23:06] LABS: GLUCOMETER DEV NAME(LOC) 5N.1D; GLUCOSE,POINT OF CARE 227 MG/DL (70-110)
[2025-03-09 23:16] VITALS: BP 131/68; PULSE 98; RESP 18; TEMP 98.2; O2SAT 98
[2025-03-10] VITALS (16 sets, daily range): BP systolic 106–177; BP diastolic 61–89; PULSE 41–110; RESP 17–19; TEMP 97.9–98.4; O2SAT 95–100
[2025-03-10] MEDS: METOCLOPRAMIDE HCL 5 MG/ML 2 ML VIAL IVP SCH (10:45)
[2025-03-10] MEDS ORDERED: LIDOCAINE/PF 1% 2 ML VIAL ONE (12:00)
[2025-03-10 12:10] LABS: GLUCOMETER DEV NAME(LOC) 5N.1D; GLUCOSE,POINT OF CARE 197 MG/DL (70-110)
[2025-03-10] MEDS ORDERED: SODIUM CHLORIDE 0.9% 1,000 ML ONE (14:55)
[2025-03-11 02:16] LABS: GLUCOMETER DEV NAME(LOC) 5N.1D; GLUCOSE,POINT OF CARE 140 MG/DL (70-110)
[2025-03-11 02:16] LABS: GLUCOMETER DEV NAME(LOC) 5S.2E; GLUCOSE,POINT OF CARE 211 MG/DL (70-110)
[2025-03-11 02:16] LABS: GLUCOMETER DEV NAME(LOC) 5N.1D; GLUCOSE,POINT OF CARE 117 MG/DL (70-110)
[2025-03-11 04:38] VITALS: BP 140/74; PULSE 103; RESP 18; TEMP 97.9; O2SAT 98
[2025-03-11 08:04] LABS: PLATELET COUNT (AUTO) 249 K/uL (150-450); RED BLOOD CELL COUNT(AUTO) 4.44 MIL/uL (4.00-5.20); RED CELL DISTRIBUTION WIDTH 14.9 % (11.5-14.5); WHITE BLOOD COUNT (AUTO) 10.7 K/uL (4.5-11.0)
[2025-03-11 08:12] LABS: CALCIUM, TOTAL 10.2 mg/dL (8.8-10.5); CREATININE 5.67 mg/dL (0.60-1.30); GLOMERULAR FILTR. RATE CALC 8.0 mL/min (>60); GLUCOSE,RANDOM 179.0 mg/dL (70-110); SODIUM SERUM 135.0 mmol/L (136-145); UREA NITROGEN, BLOOD 32.0 mg/dL (7-18)
[2025-03-11 08:47] VITALS: BP 151/93; PULSE 110; RESP 17; TEMP 97.7; O2SAT 98
[2025-03-11 11:26] VITALS: BP 167/81; PULSE 103; RESP 18; TEMP 97.8; O2SAT 98
[2025-03-11] MEDS: ACETAMINOPHEN 325 MG TABLET PO PRN (11:34)
[2025-03-11 16:18] VITALS: BP 147/82; PULSE 94; RESP 18; TEMP 97.3; O2SAT 95
[2025-03-11 19:59] VITALS: BP 150/85; PULSE 98; RESP 19; TEMP 98.6; O2SAT 96
[2025-03-11 23:57] VITALS: BP 153/85; PULSE 95; RESP 18; TEMP 97.9; O2SAT 95
[2025-03-12 00:21] LABS: GLUCOMETER DEV NAME(LOC) 5S.2E; GLUCOSE,POINT OF CARE 135 MG/DL (70-110)
[2025-03-12 00:21] LABS: GLUCOMETER DEV NAME(LOC) 5S.2E; GLUCOSE,POINT OF CARE 204 MG/DL (70-110)
[2025-03-12 00:21] LABS: GLUCOMETER DEV NAME(LOC) 5S.2E; GLUCOSE,POINT OF CARE 197 MG/DL (70-110)
[2025-03-12 00:21] LABS: GLUCOMETER DEV NAME(LOC) 5N.1D; GLUCOSE,POINT OF CARE 157 MG/DL (70-110)
[2025-03-12 03:43] VITALS: BP 149/76; PULSE 93; RESP 18; TEMP 97.9; O2SAT 95
[2025-03-12 08:10] VITALS: BP 140/75; PULSE 101; RESP 18; TEMP 98.4; O2SAT 91
[2025-03-12 11:55] LABS: GLUCOMETER DEV NAME(LOC) 5S.2E; GLUCOSE,POINT OF CARE 137 MG/DL (70-110)
[2025-03-12 11:55] LABS: GLUCOMETER DEV NAME(LOC) 5S.2E; GLUCOSE,POINT OF CARE 159 MG/DL (70-110)
[2025-03-12 11:57] VITALS: BP 154/83; PULSE 95; RESP 17; TEMP 97.5; O2SAT 95
== END 2025-03-12 13:35 | disposition home or self-care (01) | DRG 48 ==
LOC: EMS 03:25 → EDH 07:24 → 5S 09:45
PROVIDERS: ADMIT Hospitalist; ATTEND Hospitalist
PROC: 5A1D70Z Performance of Urinary Filtration, Intermittent, Less than 6 Hours Per Day (ICD-10-PCS; principal; 2025-03-10)
DX: E11.43 Type 2 diabetes mellitus with diabetic autonomic (poly)neuropathy (principal); I12.0 Hypertensive chronic kidney disease with stage 5 chronic kidney disease or end stage renal disease; K92.2 Gastrointestinal hemorrhage, unspecified; N18.6 End stage renal disease; Z99.2 Dependence on renal dialysis; D63.1 Anemia in chronic kidney disease; R65.10 Systemic inflammatory response syndrome (SIRS) of non-infectious origin without acute organ dysfunction; E11.22 Type 2 diabetes mellitus with diabetic chronic kidney disease; E87.1 Hypo-osmolality and hyponatremia; N39.0 Urinary tract infection, site not specified; K31.84 Gastroparesis; R10.13 Epigastric pain; E86.9 Volume depletion, unspecified; E87.6 Hypokalemia; K82.8 Other specified diseases of gallbladder; F41.9 Anxiety disorder, unspecified; Z82.49 Family history of ischemic heart disease and other diseases of the circulatory system; Z83.3 Family history of diabetes mellitus; Z87.11 Personal history of peptic ulcer disease; Z87.19 Personal history of other diseases of the digestive system; Z87.59 Personal history of other complications of pregnancy, childbirth and the puerperium
CPT/HCPCS: 71045; 74176; 76700; 80048; 80076; 81001; 81002; 82962; 83690; 84484; 84703; 85014; 85018; 85025; 87081; 87086; 87340; 90935; 93005; 99285; J0696; J1171; J2270; J2405; J2470; J2765; J3480; J3490; J7030; J7050; 36415-L1; 36415-TC